=== PATIENT | male | born 1945 | race Caucasian/White ===

== ENCOUNTER 2018-08-04 14:47 | Observation (INO) | payer MEDICAID, MEDICARE ==
[2018-08-04] MEDS ORDERED: DILTIAZEM HCL 125 MG in DEXTROSE 5 % IN WATER 100 ML IV PRN ×2 (15:05)
[2018-08-04] MEDS ORDERED: DILTIAZEM HCL 5 MG/ML VIAL IV ONE (15:05)
[2018-08-04 15:29] LABS: Hematocrit 54.5 % (42.0-52.0); Hemoglobin 19.1 gm/dL (13.5-18.0); Mean Cell Volume 97.1 fl (78-100); Neutrophil # 4.8 K/mm3 (1.3-6.0); Neutrophil % 49.7 % (42-75.0); Platelet Count 247 K/mm3 (150-450); Red Blood Count 5.61 M/mm3 (4.7-6.0); Red Cell Distribution Width 12.1 % (11.5-14.0); White Blood Count 9.7 K/mm3 (4.0-10.5)
[2018-08-04 15:48] LABS: Troponin I 0.056 ng/mL (0.00-0.10)
[2018-08-04 15:51] LABS: Albumin * 3.4 gm/dl (3.4-5.0); Anion Gap 15.1 mmol/L (6.8-13.8); BUN/Creatinine Ratio 17.3 (9.0-21.6); Bilirubin, Total 0.3 mg/dL (0.0-1.1); Ca. Corrected For Albumin 9.2 mg/dL (8.4-10.2); Carbon Dioxide 23.8 mmol/L (24-32.6); Potassium 4.9 mmol/L (3.4-4.6); TSH * 0.576 uIU/mL (0.358-3.74); Total Protein 7.2 gm/dL (6.2-8.2)
--- NOTE | 2018-08-04 16:54 | ERNOTE ---
Chest Pain/Cardiac HPI Date of Service: 08/04/18 Chief Complaint: Palpitations Time Seen by Provider: 08/04/18 15:00 Source: patient Exam Limitations: no limitations Immunizations: IMMUNIZATION HX Immunizations Up to Date Yes History of Influenza Vaccine No Hx Pneumococcal Vaccination No Allergies/Adverse Reactions: Allergies No Known Drug Allergies Allergy (Verified 08/04/18 15:10) Home Medications: HOME MEDICATIONS finasteride 5 mg tablet 5 mg PO DAILY 90 Days #90 tab 06/22/18 [Last Taken Unknown] tamsulosin 0.4 mg capsule 0.4 mg PO DAILY 90 Days #90 cap 06/22/18 [Last Taken Unknown] Narrative: Patient is sent in from the office for rapid heart rate. He was in the office seeing Dr Garvin and was noted to have a HR of 160. He was subsequently sent here. No CP or SOB. he will sometinmes get CP but none now. He recently was seen at [facility] and had stress test and heart cath. No stents. He in those records had a brief run of a fib but he did not know about that and does not relate any other history of this. No acute N/T/W. nothign seems to make this better or worse. he relates that he gets frequent episodes of racing heart that eating will make go away Timing: constant Severity/Quality: mild Location: other - no chest pain Chest Pain Radiation: no radiation Activities at Onset: none Modifying Factors - Improves: Present: nothing Modifying Factors - Worsens: Present: nothing Prior Treatment: Reports: recently seen. Denies: recently hospitalized Review of Systems - Review of Systems Constitutional: Absent: fever EYE: Present: no symptoms reported ENT: Present: no symptoms reported Respiratory: Absent: shortness of breath Cardiology: Absent: chest pain Gastrointestinal/Abdominal: Absent: abdominal pain Genitourinary: Present: no symptoms reported Musculoskeletal: Present: other - joint pains Skin: Present: no symptoms reported Neurological: Absent: weakness All Other Systems: All systems neg except as marked Medical History (Last Reviewed 08/04/18 @ 16:51 by Sajan Gonzalez MD) Hypertension (Chronic) Onset Date: 04/06/12 Irregular heart beat (Acute) Onset Date: Unknown Joint pain (Chronic) Onset Date: Unknown Foot pain, bilateral Onset Date: Unknown Dehydration Onset Date: 04/06/12 Headache Onset Date: 04/06/12 [employer] Lyme's Disease History of echocardiogram Onset Date: 04/22/18 [facility]. Right ankle sprain Onset Date: ~2014 Sinusitis Onset Date: Unknown Lyme disease Onset Date: 04/06/12 Surgical History: Surgical History (Last Reviewed 08/04/18 @ 16:51 by Sajan Gonzalez MD) History of cardiac cath (Resolved) Onset Date: 04/29/18 H/O heart surgery Onset Date: Unknown for stent placement, but no stents were placed per patient report History of hand surgery Onset Date: Unknown History of inguinal hernia repair Onset Date: Unknown Family History: Family History (Last Reviewed 08/04/18 @ 16:51 by Sajan Gonzalez MD) Brother Cancer Prostate cancer Mother Diabetes Social History: Preferred Language Occitan Do you have any jehovah's witness or No cultural preference? Smoking Status Current every day smoker Have you smoked in the past 12 Yes months Alcohol Use none Drug Use none (Last Updated 08/04/18 @ 15:01 by Deena Garvin DO) No Social History Section defined Physical Exam - Physical Exam General Appearance: Present: alert, no apparent distress Head Exam: Present: normal inspection, no evidence of injury Eye Exam: Normal inspection: bilateral, PERRL: bilateral Ears, Nose, Throat: Present: normal ENT inspection Neck: Present: normal inspection Respiratory: Present: no respiratory distress, normal breath sounds, no accessory muscle use, lungs clear Cardiovascular/Chest: Present: normal peripheral pulses, tachycardia, irregularly irregular Gastrointestinal/Abdominal: Present: normal bowel sounds, nontender, nondistended, soft Back Exam: Present: normal range of motion Extremity Exam: Present: normal inspection, other - no DVT findings Neurological Exam: Present: alert, no motor/sensory deficits Skin Exam: Present: normal color, warm/dry Progress - Results and Orders Patient's Lab Results:: I have reviewed the patient's lab results. - Vital Signs Patient's Vital Signs:: I have reviewed the patient's vital signs. Vital Signs: Vital Signs 08/04/18 14:58 08/04/18 15:06 08/04/18 15:21 Temperature 36.8 C Pulse Rate 143 H 140 H 167 H Respiratory Rate 17 Blood Pressure 112/57 116/63 O2 Sat by Pulse Oximetry 96 08/04/18 15:30 08/04/18 15:39 08/04/18 16:05 Temperature Pulse Rate 79 70 76 Respiratory Rate 12 11 L Blood Pressure 96/60 96/60 105/70 O2 Sat by Pulse Oximetry 96 97 08/04/18 16:35 Temperature Pulse Rate 93 Respiratory Rate 19 Blood Pressure 104/86 O2 Sat by Pulse Oximetry 97 - EKG EKG: atrial fibrillation EKG read: Interp. by me EKG Comments: A fib RVR rate 141. Non-specific changes, no clear evidence of STEMI - X-Ray X-Ray #1 X-Ray: chest Interpretation: Interp. by me X-ray Comments: I reviewed official radiology report - Progress/Reassessment Chief Complaint: Palpitations Progress Note-Subjective: 08/04/18 16:53 Rate controlled with IV cardizem and drip. Reviewed cardiology notes from [facility]. D/W Dr Garvin, patient will be admitted on his drip. patient is agreeable at this time Departure Clinical Impression: Atrial fibrillation with RVR - Departure Disposition: Still a patient Condition: Fair Referrals: Deena Garvin DO [Primary Care Provider] -
[2018-08-04] MEDS ORDERED: ACETAMINOPHEN 325 MG TABLET PO PRN (17:32)
--- NOTE | 2018-08-04 17:40 | HP ---
Chief Complaint - Chief Complaint Date of Service: 08/04/18 Time of Service: 17:32 Chief Complaint: tachycardia History of Present Illness: Patient presented for a new patient visit with PCP, and HR was found to be up to 160. He was asymptomatic. The only medications he takes are for BPH. BP in 120's/70's. He reported previous CP, but none currently. Chart review showed he was established with cardiology, and had some ischemia on stress EKG. 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 Medical History (Last Reviewed 08/04/18 @ 16:51 by Sajan Gonzalez MD) Hypertension (Chronic) Onset Date: 04/06/12 Irregular heart beat (Acute) Onset Date: Unknown Joint pain (Chronic) Onset Date: Unknown Foot pain, bilateral Onset Date: Unknown Dehydration Onset Date: 04/06/12 Headache Onset Date: 04/06/12 [facility] Lyme's Disease History of echocardiogram Onset Date: 04/22/18 [facility]. Right ankle sprain Onset Date: ~2014 Sinusitis Onset Date: Unknown Lyme disease Onset Date: 04/06/12 Surgical History: Surgical History (Last Reviewed 08/04/18 @ 16:51 by Sajan Gonzalez MD) History of cardiac cath (Resolved) Onset Date: 04/29/18 H/O heart surgery Onset Date: Unknown for stent placement, but no stents were placed per patient report History of hand surgery Onset Date: Unknown History of inguinal hernia repair Onset Date: Unknown Family History: Family History (Last Reviewed 08/04/18 @ 16:51 by Sajan Gonzalez MD) Brother Cancer Prostate cancer Mother Diabetes Social History: Preferred Language Maori Do you have any voodoo or No cultural preference? Smoking Status Current every day smoker Have you smoked in the past 12 Yes months Alcohol Use none Drug Use none (Last Updated 08/04/18 @ 15:01 by Deena Garvin DO) No Social History Section defined Review Of Systems (GEN) - Review of Systems Generalized/Overall Review: Absent: Fever, Fatigue Respiratory: Absent: Cough, Shortness of Breath Cardiac: Absent: Chest Pain, Edema, Palpitations Abdominal: Absent: Nausea, Abdominal Pain Genitourinary: Present: Hesitancy, Hematuria - Scheduled for cystoscopy with Dr. Noyola 08/05/18 Musculoskeletal: Present: Other - bilateral foot pain Immunizations: IMMUNIZATION HX Immunizations Up to Date Yes History of Influenza Vaccine No Hx Pneumococcal Vaccination No Allergies/Adverse Reactions: Allergies Allergy/AdvReac Type Severity Reaction Status Date / Time No Known Drug Allergies Allergy Verified 08/04/18 15:10 Home Medications: HOME MEDICATIONS finasteride 5 mg tablet 5 mg PO DAILY 90 Days #90 tab 06/22/18 [Last Taken Unknown] tamsulosin 0.4 mg capsule 0.4 mg PO DAILY 90 Days #90 cap 06/22/18 [Last Taken Unknown] Exam - Exam Vital Signs: Vital Signs - Last Taken Temp 36.8 C 08/04/18 14:58 Pulse 93 08/04/18 16:35 Resp 19 08/04/18 16:35 BP 104/86 08/04/18 16:35 Pulse Ox 97 08/04/18 16:35 Constitutional: Present: Alert, No distress Neck: Absent: lymphadenopathy (R), lymphadenopathy (L) Respiratory: Present: decreased breath sounds. Absent: wheezing Cardiovascular/Chest: Present: irregularly irregular - HR 80's Extremity: Absent: lower extremity edema Eye contact: Present: cooperative, good eye contact Diagnostic Studies: Abnormal Lab Results 08/04/18 08/04/18 Range/Units 15:15 15:15 Hgb 19.1 H (13.5-18.0) gm/dL Hct 54.5 H (42.0-52.0) % MCH 34.0 H (27-31) pg Immature Gran # (Auto) 0.04 H (0.000-0.0310) K/mm3 Eosinophils % 9.4 H (0.0-3.0) % Eosinophils # 0.9 H (0.0-0.7) k/mm3 Potassium 4.9 H D (3.4-4.6) mmol/L Carbon Dioxide 23.8 L (24-32.6) mmol/L Anion Gap 15.1 H (6.8-13.8) mmol/L Random Glucose 120 H (70-110) mg/dL Laboratory Results WBC 9.7 K/mm3 (4.0-10.5) 08/04/18 15:15 RBC 5.61 M/mm3 (4.7-6.0) 08/04/18 15:15 Hgb 19.1 gm/dL (13.5-18.0) H 08/04/18 15:15 Hct 54.5 % (42.0-52.0) H 08/04/18 15:15 MCV 97.1 fl (78-100) 08/04/18 15:15 MCH 34.0 pg (27-31) H 08/04/18 15:15 MCHC 35.0 g/dl (32-36) 08/04/18 15:15 RDW 12.1 % (11.5-14.0) 08/04/18 15:15 Plt Count 247 K/mm3 (150-450) 08/04/18 15:15 MPV 9.0 fl (8-11.3) 08/04/18 15:15 Immature Gran % (Auto) 0.40 % (0.001-0.429) 08/04/18 15:15 Immature Gran # (Auto) 0.04 K/mm3 (0.000-0.0310) H 08/04/18 15:15 Neutrophils % 49.7 % (42-75.0) 08/04/18 15:15 Lymphocytes % 30.7 % (20-51) 08/04/18 15:15 Monocytes % 8.9 % (0.0-9) 08/04/18 15:15 Eosinophils % 9.4 % (0.0-3.0) H 08/04/18 15:15 Basophils % 0.9 % (0.0-1.0) 08/04/18 15:15 Nucleated RBC % 0.0 k/mm3 (0-1) 08/04/18 15:15 Neutrophils # 4.8 K/mm3 (1.3-6.0) 08/04/18 15:15 Lymphocytes # 2.99 k/mm3 (1.5-3.5) 08/04/18 15:15 Monocytes # 0.9 k/mm3 (0.0-1.0) 08/04/18 15:15 Eosinophils # 0.9 k/mm3 (0.0-0.7) H 08/04/18 15:15 Absolute Basophils 0.1 k/mm3 (0.0-0.1) 08/04/18 15:15 Sodium 139 mmol/L (132-142) 08/04/18 15:15 Plasma Sodium 139 mmol/L (130-142) 08/04/18 15:15 Potassium 4.9 mmol/L (3.4-4.6) H D 08/04/18 15:15 Chloride 105 mmol/L (97-106) 08/04/18 15:15 Carbon Dioxide 23.8 mmol/L (24-32.6) L 08/04/18 15:15 Anion Gap 15.1 mmol/L (6.8-13.8) H 08/04/18 15:15 BUN 19 mg/dL (6-23) 08/04/18 15:15 Creatinine 1.10 mg/dL (0.4-1.4) 08/04/18 15:15 Est GFR (Non-Af Amer) 70 mL/min (60-130) 08/04/18 15:15 BUN/Creatinine Ratio 17.3 (9.0-21.6) 08/04/18 15:15 Random Glucose 120 mg/dL (70-110) H 08/04/18 15:15 Calcium 9.0 mg/dL (7.9-10.9) 08/04/18 15:15 Calcium Adj for Albumin 9.2 mg/dL (8.4-10.2) 08/04/18 15:15 Total Bilirubin 0.3 mg/dL (0.0-1.1) 08/04/18 15:15 AST 21 U/L (0-48) 08/04/18 15:15 ALT 26 U/L (19-67) 08/04/18 15:15 Alkaline Phosphatase 122 U/L (50-170) 08/04/18 15:15 Troponin I 0.056 ng/mL (0.00-0.10) 08/04/18 15:15 Total Protein 7.2 gm/dL (6.2-8.2) 08/04/18 15:15 Albumin 3.4 gm/dl (3.4-5.0) 08/04/18 15:15 TSH 0.576 uIU/mL (0.358-3.74) 08/04/18 15:15 Assessment/Plan - Assessment/Plan (1) Atrial fibrillation with RVR Assessment: HR improved after administration of 20 mg IV cardizem, maintained on 5 mg/hr cardizem gtt. Will administer 60 mg po cardizem q8h, and can stop the drip if his HR remains less than 90 bpm. Will start eliquis for anticoagulation, and will ask case mgt in the morning to verify this will be covered by insurance. Will have him see cardiology soon after discharge. His BP is tolerating the cardizem dose currently. Discussed the importance of tobacco cessation. Problem: Acute (2) Hypertension Assessment: BP not currently elevated. Will hold previously prescribed avapro. Problem: Chronic (3) History of cardiac cath Assessment: Pt had history of CP, and underwent cath. No stents placed. His troponin was 0.05, and repeat pending. Problem: Resolved (4) Irregular heart beat Assessment: Normal TSH. Rate control with cardizem, and anticoagulate with eliquis if insurance allows. If not, will administer lovenox and start coumadin. If no recent echocardiogram, will obtain tomorrow. Problem: Acute (5) BPH with obstruction/lower urinary tract symptoms Assessment: He is scheduled to have cystoscopy for hematuria tomorrow with Dr. Noyola. I anticipate he will be able to come off the cardizem drip tonight. If so, will see if he can undergo this procedure as scheduled. Problem: Acute
[2018-08-04] MEDS ORDERED: TAMSULOSIN HCL 0.4 MG CAP.SR.24H PO SCH (19:00)
[2018-08-04] MEDS: DILTIAZEM HCL 60 MG TABLET PO SCH (19:10)
[2018-08-04] MEDS: APIXABAN 5 MG TABLET PO SCH (20:48)
[2018-08-05] MEDS: DILTIAZEM HCL 60 MG TABLET PO SCH (01:31)
[2018-08-05] MEDS: APIXABAN 5 MG TABLET PO SCH (08:40)
[2018-08-05] MEDS ORDERED: FINASTERIDE 5 MG TABLET PO SCH (09:00)
--- NOTE | 2018-08-05 09:05 | DS ---
(1) Atrial fibrillation with RVR Problem: Acute (2) Hypertension Problem: Chronic (3) History of cardiac cath Problem: Resolved (4) Irregular heart beat Problem: Acute (5) BPH with obstruction/lower urinary tract symptoms Problem: Acute Description of Stay: Patient presented for a new patient visit with his PCP, and his heart rate was found to be up to 160. He was asymptomatic, and felt like if he ate something his heart rate would decrease. Denied CP or SOB. He was given 20 mg cardizem in the ED, and his HR decreased to the 70's. He was maintained on 5 mg/hr cardizem gtt, and given 60 mg po. His BP tolerated this dose. Overnight, he converted to NSR, and his EKG showed some T wave inversion, similar to previous EKG last summer. After conversion, his HR was in the 60's. Chart review shows he was seen by cardiology in March, and had a heart cath, and no stents were placed. He did have possible ischemia on stress EKG, and had a brief episode of afib with RVR during that workup. He was started on Eliquis, and his copay was verified with his pharmacy to be $8 monthly. Will not administer rate control agent at this time, with his HR in the 60's. 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 Will schedule this in the next couple of weeks if it was not already done. He was scheduled to have a cystoscopy for hematuria on 08/05, but given his hospitalization, this will be rescheduled for a future date. Procedures Performed: none Results and Findings: Lab Pending Results 08/04/18 15:15: WBC 9.7, RBC 5.61, Hgb 19.1 H, Hct 54.5 H, MCV 97.1, MCH 34.0 H, MCHC 35.0, RDW 12.1, Plt Count 247, MPV 9.0, Immature Gran % (Auto) 0.40, Immature Gran # (Auto) 0.04 H, Neutrophils % 49.7, Lymphocytes % 30.7, Monocytes % 8.9, Eosinophils % 9.4 H, Basophils % 0.9, Nucleated RBC % 0.0, Neutrophils # 4.8, Lymphocytes # 2.99, Monocytes # 0.9, Eosinophils # 0.9 H, Absolute Basophils 0.1 08/04/18 15:15: Sodium 139, Plasma Sodium 139, Potassium 4.9 H D, Chloride 105, Carbon Dioxide 23.8 L, Anion Gap 15.1 H, BUN 19, Creatinine 1.10, Est GFR (Non- Af Amer) 70, BUN/Creatinine Ratio 17.3, Random Glucose 120 H, Calcium 9.0, Calcium Adj for Albumin 9.2, Total Bilirubin 0.3, AST 21, ALT 26, Alkaline Phosphatase 122, Troponin I 0.056, Total Protein 7.2, Albumin 3.4, TSH 0.576 08/04/18 18:55: Troponin I 0.063 Discharge Location: Home Disposition: Home self-care Condition: Fair Discharge Activity: Activity as tolerated Discharge Diet: General/regular food Referrals: Deena Garvin DO [Primary Care Provider] - Additional Patient Instructions (free text): -Please make TCM appointment unless intermediate discharge. Thank you! Selena @ [phone]. Please schedule with Dr. 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 Complete Home Medications List: Complete Home Medication List: finasteride 5 mg tablet 5 mg PO DAILY 90 Days #90 tab 06/22/18 tamsulosin 0.4 mg capsule 0.4 mg PO DAILY 90 Days #90 cap 06/22/18
[2018-08-05 10:30] VITALS: BP 145/87
== END 2018-08-05 10:39 | disposition home or self-care (01) ==
LOC: ER 14:47 → SCU 14:47
PROVIDERS: ADMIT Family Medicine; ATTEND Family Medicine
CPT/HCPCS: 36415; 71020; 71046; 80053; 84443; 84484; 85025; 93005; 96365; 96366; 96375; 99214; 99285; G0378